=== PATIENT | male | born 1950 | race Caucasian/White ===

== ENCOUNTER 2016-05-06 08:52 | Day surgery (SDC) | payer MEDICARE ==
--- NOTE | ~2016-05-06 | EGD ---
EGD REPORT [facility] [address] [address] NAME: RENE RAINEY : 50 STATUS : REG [facility] [place] PAT#: [id number] AGE: 65 ADM/REG DATE : 05/06/16 MR#: [id number] REPORT SERV DATE: 05/06/16 DICTATED BY: ANGELIA MONACO DATE: 05/06/16 REPORT STATUS : Draft TRANSCRIBED BY: [employer] DATE: 05/06/16 [facility] Patient Name: Rene Rainey Date of : 1950 Attending MD: ANGELIA MONACO, Procedure Date No Time: 05/06/2016 Procedure: ERCP Indications: Bile leak Referring MD: MARTY CHOW, Carlos Cordova Medicines: General Anesthesia Complications: No immediate complications. Estimated blood loss: None Procedure: Pre-Anesthesia Assessment: - ASA Grade Assessment: II - A patient with mild systemic disease. After obtaining informed consent, the scope was passed under direct vision. Throughout the procedure, the patient's blood pressure, pulse, and oxygen saturations were monitored continuously. The TJF Q180V [id number] was introduced through the mouth, and advanced to the duodenum and used to inject contrast into the bile duct and ventral pancreatic duct. The ERCP was performed with moderate difficulty due to abnormal anatomy. The patient tolerated the procedure well. Findings: The ventral pancreatic duct was deeply cannulated with the short-nosed traction sphincterotome. Contrast was injected. The entire opacified area was normal except the pancreatic duct did not appear to have a signficant bend. The bile duct was deeply cannulated with the short-nosed traction sphincterotome. Contrast was injected. The main bile duct was normal but was very J-shaped in appearance.. Biliary sphincterotomy was made with a traction (standard) sphincterotome using ERBE electrocautery. There was no post-sphincterotomy bleeding. One 10 Fr by 7 cm temporary stent was placed into the common bile duct. The stent was in good position. Impression: - Normal endoscopic retrograde cholangiopancreatography. Recommendation: - Return to previous diet. - Continue present medications. - Retrun to [facility]. Case discussed with Zane Flowers and Lisa. Procedure Code(s): --- Professional --- 55606, Endoscopic retrograde cholangiopancreatography EGD REPORT [address] [address] NAME: RENE RAINEY : 50 STATUS : REG [facility]#: [id number] AGE: 65 ADM/REG DATE : 05/06/16 MR#: [id number] REPORT SERV DATE: 05/06/16 DICTATED BY: ANGELIA MONACO DATE: 05/06/16 REPORT STATUS : Draft [facility] DATE: 05/06/16 (ERCP); with placement of endoscopic stent into biliary or pancreatic duct, including pre- and post-dilation and guide wire passage, when performed, including sphincterotomy, when performed, each stent Diagnosis Code(s): --- Professional --- K83.8, Other specified diseases of biliary tract CPT copyright 2013 [employer]. All rights reserved. The codes documented in this report are preliminary and upon sealer operator review may be revised to meet current compliance requirements. ANGELIA MONACO, 05/06/2016 11:40 AM Number of Addenda: 0 Note Initiated On: 05/06/2016 10:20 AM Scope Withdrawal Time 0 hours 0 minutes 0 seconds [id number] [place] [address]
== END 2016-05-06 23:59 | disposition home health service (06) ==
LOC: DMU 08:52
PROVIDERS: Internal Medicine Gastroenterology
PROC: 0F7D8DZ Dilation of Pancreatic Duct with Intraluminal Device, Via Natural or Artificial Opening Endoscopic (ICD-10-PCS; principal; 2016-05-06 10:36)
DX: K83.8 Other specified diseases of biliary tract (principal); K80.10 Calculus of gallbladder with chronic cholecystitis without obstruction; I10 Essential (primary) hypertension; Z79.899 Other long term (current) drug therapy
CPT/HCPCS: 74330; C1769; J0330; J1610; J2405; J3010